=== PATIENT | female | born 1975 | race Caucasian/White ===

== ENCOUNTER 2016-12-12 15:21 | Emergency (ER) | payer OTHER ==
[~2016-12-12] VITALS: Ht 175.3 cm; Wt 114.5 kg
[~2016-12-12 15:21] MED LIST: GLUCOPHAGE500 MG PO; JANUMET 50/11 TABLET PO
[2016-12-12] MEDS ORDERED: MUCINEX D ER T1 EACH PO (17:28)
[2016-12-12] MEDS ORDERED: FLONASE16 G1 BOTH NARES (17:28)
[2016-12-12 18:05] LABS: POINT-OF-CARE METER ID UU13113800
[2016-12-12 18:07] VITALS: BP 127/101
== END 2016-12-12 18:08 | disposition home or self-care (01) ==
LOC: EME 15:21
PROVIDERS: Physician Assistant
DX: J01.90 Acute sinusitis, unspecified (principal); J30.9 Allergic rhinitis, unspecified; E11.65 Type 2 diabetes mellitus with hyperglycemia; I10 Essential (primary) hypertension
CPT/HCPCS: 82948; 99281; 99283; J7512

== ENCOUNTER 2017-03-31 20:21 | Emergency (ER) | payer OTHER ==
[~2017-03-31] VITALS: Ht 172.7 cm; Wt 113.9 kg
[~2017-03-31 20:21] MED LIST changes: +FLONASE16 G1 BOTH NARES; +MUCINEX D ER T1 EACH PO
[2017-03-31 21:18] LABS: HEMATOCRIT 43.7 % (36.0-46.0); MCH 29.7 PG (29.0-34.0); MCHC 33.9 G/DL (30.0-36.0); MCV 87.8 FL (83-99); MEAN PLAT.VOLUME 12.7 uM^3 (9.5-12.4); PLATELET COUNT 129 K/uL (156-360); RBC DIS.WIDTH-CV 12.7 % (11.8-14.6); RED BLOOD COUNT 4.98 M/uL (3.80-5.20); WHITE BLOOD COUNT 9.4 K/uL (4.1-10.2)
[2017-03-31 21:28] LABS: CHLORIDE 101 mEq/L (99-109); POTASSIUM 4.2 mEq/L (3.7-5.4); SODIUM 133 mEq/L (136-147)
[2017-03-31 21:31] LABS: ANION GAP 13 MEQ/L (2-14)
[2017-03-31 21:34] LABS: GFR ESTIMATE (CALCULATED) 35 mL/min/; UREA NITROGEN (BUN) 26 mg/dL (9-23)
[2017-03-31 21:41] LABS: TROP-I INTERPRETATION NEGATIVE; TROPONIN-I < 0.01 ng/mL (0.0-0.30)
[2017-03-31 21:50] LABS: GLUCOSE 479 mg/dL (70-99)
[2017-03-31 21:53] LABS: CREATINE KINASE 180 IU/L (1-294)
[2017-03-31 21:59] LABS: QUANTITATIVE HCG < 4.0 MIU/ML
[2017-03-31 23:33] LABS: POINT-OF-CARE METER ID UU13113800; POINT-OF-CARE USER ID PUTMLD10
[2017-04-01 00:06] LABS: CHLORIDE 101 mEq/L (99-109); POTASSIUM 4.2 mEq/L (3.7-5.4); SODIUM 135 mEq/L (136-147)
[2017-04-01 00:07] LABS: GLUCOSE 315 mg/dL (70-99)
[2017-04-01 00:09] LABS: ANION GAP 13 MEQ/L (2-14)
[2017-04-01 00:11] LABS: GFR ESTIMATE (CALCULATED) 44 mL/min/
[2017-04-01 00:12] LABS: UREA NITROGEN (BUN) 24 mg/dL (9-23)
[2017-04-01 00:18] LABS: ADD MIUA? YES; BILIRUBIN NEGATIVE; BLOOD MODERATE; COLOR AMBER ((YELLOW)); GLUCOSE (STRIP) >=500; KETONES NEGATIVE; LEUKOCYTES TRACE; NITRITE NEGATIVE; PROTEIN (STRIP) NEGATIVE; SPECIFIC GRAVITY 1.023 (1.000-1.030); UROBILINOGEN 0.2 MG/DL (0.2-1.0)
[2017-04-01 00:18] LABS: TROP-I INTERPRETATION NEGATIVE; TROPONIN-I < 0.01 ng/mL (0.0-0.30)
[2017-04-01 00:24] LABS: BACTERIA NONE SEEN /HPF; EPITHELIAL CELLS RARE /HPF; HYALINE CASTS 0-5 /LPF; MUCUS NONE SEEN /LPF; RED BLOOD CELLS 0-5 /HPF (0-5); WHITE BLOOD CELLS 0-5 /HPF (0-5)
[2017-04-01 00:42] VITALS: BP 117/72
[2017-04-02 10:16] LABS: LYME DISEASE SEROLOGY SCREEN NEGATIVE (NEGATIVE)
== END 2017-04-01 00:43 | disposition left against medical advice (07) ==
LOC: EME 20:21
PROVIDERS: Physician Assistant
DX: E11.65 Type 2 diabetes mellitus with hyperglycemia (principal); N28.9 Disorder of kidney and ureter, unspecified; R07.89 Other chest pain; R55 Syncope and collapse; R00.2 Palpitations; R06.02 Shortness of breath; I10 Essential (primary) hypertension; Z82.49 Family history of ischemic heart disease and other diseases of the circulatory system; Z79.84 Long term (current) use of oral hypoglycemic drugs
CPT/HCPCS: 71020; 80048; 80048 91; 81003; 82550; 82948; 84484; 84702; 85027; 85379; 86618; 93005; 99281; 99285; J7030

== ENCOUNTER 2017-04-08 22:58 | Emergency (ER) | payer OTHER ==
[~2017-04-08] VITALS: Ht 172.7 cm; Wt 114.2 kg
[2017-04-09 00:04] LABS: HEMATOCRIT 41.6 % (36.0-46.0); MCH 30.2 PG (29.0-34.0); MCHC 33.9 G/DL (30.0-36.0); MCV 89.1 FL (83-99); MEAN PLAT.VOLUME 13.8 uM^3 (9.5-12.4); PLATELET COUNT 112 K/uL (156-360); RBC DIS.WIDTH-CV 12.6 % (11.8-14.6); RBC DIS.WIDTH-SD 41.3 % (39-53); RED BLOOD COUNT 4.67 M/uL (3.80-5.20); WHITE BLOOD COUNT 6.6 K/uL (4.1-10.2)
[2017-04-09 00:18] LABS: CHLORIDE 102 mEq/L (99-109); SODIUM 136 mEq/L (136-147)
[2017-04-09 00:21] LABS: ANION GAP 11 MEQ/L (2-14)
[2017-04-09 00:23] LABS: GFR ESTIMATE (CALCULATED) 44 mL/min/
[2017-04-09 00:24] LABS: UREA NITROGEN (BUN) 15 mg/dL (9-23)
[2017-04-09 00:27] LABS: GLUCOSE 418 mg/dL (70-99)
[2017-04-09 00:33] LABS: TROP-I INTERPRETATION NEGATIVE; TROPONIN-I 0.01 ng/mL (0.0-0.30)
[2017-04-09 00:49] LABS: PROTHROMBIN TIME 10.9 SEC (10.2-12.9)
[2017-04-09 00:50] LABS: TOTAL BILIRUBIN 0.4 mg/dL (0.0-1.0)
[2017-04-09 00:51] LABS: ALKALINE PHOSPHATASE 59 IU/L (3-129); D-DIMER ELISA < 150.00 ng/mLDDU (<230)
[2017-04-09 00:52] LABS: PTT 26.9 SEC (25-37)
[2017-04-09 00:54] LABS: DIRECT BILIRUBIN 0.1 mg/dL (0.0-0.3)
[2017-04-09 00:55] LABS: LIPASE 60 U/L (1.0-51.0)
[2017-04-09 02:16] LABS: POINT-OF-CARE METER ID UU13113747
[2017-04-09 02:38] LABS: ADD MIUA? NO; BILIRUBIN NEGATIVE; BLOOD NEGATIVE; COLOR STRAW ((YELLOW)); GLUCOSE (STRIP) >=500; KETONES NEGATIVE; LEUKOCYTES NEGATIVE; NITRITE NEGATIVE; PROTEIN (STRIP) NEGATIVE; SPECIFIC GRAVITY 1.031 (1.000-1.030); UCUL ADDED? NO; UROBILINOGEN 0.2 MG/DL (0.2-1.0)
[2017-04-09 03:09] LABS: TROP-I INTERPRETATION NEGATIVE; TROPONIN-I < 0.01 ng/mL (0.0-0.30)
[2017-04-09 03:28] VITALS: BP 139/94
== END 2017-04-09 03:29 | disposition home or self-care (01) ==
LOC: EME 22:58
PROVIDERS: Emergency Medicine
DX: R07.89 Other chest pain (principal); E11.65 Type 2 diabetes mellitus with hyperglycemia; I10 Essential (primary) hypertension; M06.09 Rheumatoid arthritis without rheumatoid factor, multiple sites; M79.602 Pain in left arm; Z79.84 Long term (current) use of oral hypoglycemic drugs; Z82.49 Family history of ischemic heart disease and other diseases of the circulatory system
CPT/HCPCS: 71020; 80048; 80076; 81003; 82948; 83690; 84484; 85027; 85379; 85610; 85730; 93005; 99281; 99285; J7030

== ENCOUNTER 2017-09-24 01:05 | Emergency (ER) | payer OTHER ==
[~2017-09-24] VITALS: Ht 172.7 cm; Wt 115.9 kg
[2017-09-24] MEDS ORDERED: MOTRIN800 MG PO (02:52)
[2017-09-24 03:47] VITALS: BP 164/79
[2017-10-04] MEDS ORDERED: JANUMET 50/11 TABLET PO (09:01)
[2017-10-04] MEDS ORDERED: FLEXERIL10 MG PO (09:01)
[2017-10-04] MEDS ORDERED: LABETALOL HCL100 MG PO (09:01)
[2017-10-04] MEDS ORDERED: LEVEMIR FL100 UNIT/1 SC (09:02)
[2017-10-04] MEDS ORDERED: MOBIC15 MG PO (09:02)
[2017-10-04] MEDS ORDERED: LISINOPRIL20 MG PO (09:02)
[2017-10-04] MEDS ORDERED: NOVOLOG PE100 UNITS/ SC (09:03)
[2017-10-04] MEDS ORDERED: ALDACTONE25 MG PO (09:03)
[2017-10-04] MEDS ORDERED: FIORICET 50-301 EAC1 PO (09:04)
== END 2017-09-24 03:48 | disposition home or self-care (01) ==
LOC: EME 01:05
DX: S50.12XA Contusion of left forearm, initial encounter (principal); W10.9XXA Fall (on) (from) unspecified stairs and steps, initial encounter; E11.9 Type 2 diabetes mellitus without complications; I10 Essential (primary) hypertension; Z79.84 Long term (current) use of oral hypoglycemic drugs
CPT/HCPCS: 73090; 99281; 99284; J1885

== ENCOUNTER 2017-10-05 10:36 | Day surgery (SDC) | payer OTHER ==
[~2017-10-05] VITALS: Ht 172.7 cm; Wt 111.3 kg
[~2017-10-05 10:36] MED LIST changes: +ALDACTONE25 MG PO; +FIORICET 50-301 EAC1 PO; +FLEXERIL10 MG PO; +LABETALOL HCL100 MG PO; +LEVEMIR FL100 UNIT/1 SC; +LISINOPRIL20 MG PO; +MOBIC15 MG PO; +MOTRIN800 MG PO; +NOVOLOG PE100 UNITS/ SC
[2017-10-05 11:16] VITALS: BP 137/74
[2017-10-05] MEDS ORDERED: ENDOCET 5-3251 EACH PO (13:15)
[2017-10-05 13:57] VITALS: BP 139/81
[2017-10-05 14:50] VITALS: BP 122/77
[2017-10-05 16:25] VITALS: BP 144/72
== END 2017-10-05 16:25 | disposition home or self-care (01) ==
LOC: SDC 10:36
PROVIDERS: Obstetrics & Gynecology Obstetrics
PROC: 0UBC7ZX Excision of Cervix, Via Natural or Artificial Opening, Diagnostic (ICD-10-PCS; principal; 2017-10-05)
DX: N87.0 Mild cervical dysplasia (principal); E11.9 Type 2 diabetes mellitus without complications; E78.5 Hyperlipidemia, unspecified; I10 Essential (primary) hypertension; E66.01 Morbid (severe) obesity due to excess calories; Z68.36 Body mass index [BMI] 36.0-36.9, adult; D69.6 Thrombocytopenia, unspecified; Z79.4 Long term (current) use of insulin
CPT/HCPCS: 82948; 88305; 88307; 88342 TC; J1100; J1815; J1885; J2405; J3010

== ENCOUNTER 2017-10-07 18:39 | Emergency (ER) | payer OTHER ==
[~2017-10-07] VITALS: Ht 172.7 cm; Wt 114.4 kg
[~2017-10-07 18:39] MED LIST changes: +ENDOCET 5-3251 EACH PO
[2017-10-07 20:05] LABS: HEMATOCRIT 40.1 % (36.0-46.0); HEMOGLOBIN 13.7 G/DL (11.9-15.5); MCH 30.2 PG (29.0-34.0); MCHC 34.2 G/DL (30.0-36.0); MCV 88.5 FL (83-99); PLATELET COUNT 133 K/uL (156-360); RBC DIS.WIDTH-CV 13.4 % (11.8-14.6); RBC DIS.WIDTH-SD 43.6 % (39-53); RED BLOOD COUNT 4.53 M/uL (3.80-5.20); WHITE BLOOD COUNT 12.3 K/uL (4.1-10.2)
[2017-10-07 20:25] LABS: ALBUMIN 3.9 g/dL (3.2-4.8)
[2017-10-07 20:26] LABS: CHLORIDE 99 mEq/L (99-109); POTASSIUM 4.7 mEq/L (3.7-5.4); SODIUM 134 mEq/L (136-147)
[2017-10-07 20:30] LABS: TOTAL BILIRUBIN 0.9 mg/dL (0.0-1.0)
[2017-10-07 20:31] LABS: ALKALINE PHOSPHATASE 65 IU/L (3-129)
[2017-10-07 20:32] LABS: CREATININE 1.3 mg/dL (0.6-1.3); GFR ESTIMATE (CALCULATED) 48 mL/min/
[2017-10-07 20:33] LABS: AST (GOT) 13 IU/L (2-34); GLUCOSE 402 mg/dL (70-99); UREA NITROGEN (BUN) 19 mg/dL (9-23)
[2017-10-07 20:35] LABS: ALT (GPT) 19 IU/L (3-49)
[2017-10-07 20:40] LABS: QUANTITATIVE HCG < 4.0 MIU/ML
[2017-10-07 22:06] LABS: APPEARANCE CLOUDY ((CLEAR)); BILIRUBIN NEGATIVE; BLOOD LARGE; COLOR YELLOW ((YELLOW)); GLUCOSE (STRIP) >=500; KETONES NEGATIVE; LEUKOCYTES LARGE; NITRITE NEGATIVE; PROTEIN (STRIP) 30; SPECIFIC GRAVITY 1.029 (1.000-1.030); UROBILINOGEN 0.2 MG/DL (0.2-1.0)
[2017-10-07 22:16] LABS: SOURCE SWAB
[2017-10-07 22:29] LABS: RED BLOOD CELLS 15-20 /HPF (0-5); WHITE BLOOD CELLS TNTC /HPF (0-5)
[2017-10-07 22:30] LABS: BACTERIA 2+ /HPF; EPITHELIAL CELLS 2+ /HPF; MUCUS NONE SEEN /LPF; UCUL ADDED? YES
[2017-10-07] MEDS ORDERED: KEFLEX500 MG PO (22:33)
[2017-10-07] MEDS ORDERED: ULTRAM50 MG PO (22:39)
[2017-10-07 22:57] VITALS: BP 142/98
== END 2017-10-07 22:59 | disposition home or self-care (01) ==
LOC: EME 18:39
PROVIDERS: Physician Assistant
DX: R10.2 Pelvic and perineal pain (principal); E11.9 Type 2 diabetes mellitus without complications; Z79.4 Long term (current) use of insulin; Z98.890 Other specified postprocedural states
CPT/HCPCS: 80053; 81003; 84702; 85027; 87086; 87210; 87491; 87591; 99281; 99284

== ENCOUNTER 2017-10-22 13:16 | Emergency (ER) | payer OTHER ==
[~2017-10-22] VITALS: Ht 172.7 cm; Wt 112.4 kg
[~2017-10-22 13:16] MED LIST changes: +KEFLEX500 MG PO; +ULTRAM50 MG PO
[2017-10-22 13:27] VITALS: BP 139/79
[2017-10-22] MEDS ORDERED: CLEOCIN300 MG PO (13:39)
[2017-10-22] MEDS ORDERED: ULTRAM50 MG PO (13:39)
== END 2017-10-22 14:00 | disposition home or self-care (01) ==
LOC: EME 13:16
DX: L73.9 Follicular disorder, unspecified (principal); I89.0 Lymphedema, not elsewhere classified; L02.411 Cutaneous abscess of right axilla
CPT/HCPCS: 99281; 99284

== ENCOUNTER 2018-01-22 18:03 | Emergency (ER) | payer OTHER ==
[~2018-01-22] VITALS: Ht 175.3 cm; Wt 112.4 kg
[~2018-01-22 18:03] MED LIST changes: +CLEOCIN300 MG PO
[2018-01-22] MEDS ORDERED: FLEXERIL10 MG PO (20:59)
[2018-01-22] MEDS ORDERED: NAPROSYN500 MG PO (20:59)
[2018-01-22] MEDS ORDERED: MEDROL DOSEPAK4 MG PO (20:59)
[2018-01-22 21:23] VITALS: BP 130/78
== END 2018-01-22 20:59 | disposition home or self-care (01) ==
LOC: EME 18:03
DX: M54.5 Low back pain (principal)
CPT/HCPCS: 99281; 99283

== ENCOUNTER 2018-02-03 23:47 | Emergency (ER) | payer OTHER ==
[~2018-02-03] VITALS: Ht 172.7 cm; Wt 110.4 kg
[~2018-02-03 23:47] MED LIST changes: +MEDROL DOSEPAK4 MG PO; +NAPROSYN500 MG PO
[2018-02-04] MEDS ORDERED: ULTRAM50 MG PO (01:55)
[2018-02-04] MEDS ORDERED: MOTRIN800 MG PO (01:55)
[2018-02-04 02:04] VITALS: BP 146/96
== END 2018-02-04 02:15 | disposition home or self-care (01) ==
LOC: EME 23:47
DX: S20.212A Contusion of left front wall of thorax, initial encounter (principal); W01.0XXA Fall on same level from slipping, tripping and stumbling without subsequent striking against object, initial encounter; Y92.000 Kitchen of unspecified non-institutional (private) residence as the place of occurrence of the external cause; E11.9 Type 2 diabetes mellitus without complications; Z79.4 Long term (current) use of insulin
CPT/HCPCS: 71101; 99281; 99283

== ENCOUNTER 2018-03-02 03:57 | Emergency (ER) | payer OTHER ==
[~2018-03-02] VITALS: Ht 172.7 cm; Wt 109.2 kg
[2018-03-02 04:42] LABS: HEMATOCRIT 42.2 % (36.0-46.0); HEMOGLOBIN 14.3 G/DL (11.9-15.5); MCH 29.7 PG (29.0-34.0); MCHC 33.9 G/DL (30.0-36.0); MCV 87.6 FL (83-99); PLATELET COUNT 104 K/uL (156-360); RBC DIS.WIDTH-CV 13.2 % (11.8-14.6); RBC DIS.WIDTH-SD 42.8 % (39-53); RED BLOOD COUNT 4.82 M/uL (3.80-5.20)
[2018-03-02 04:52] LABS: CHLORIDE 105 mEq/L (99-109); POTASSIUM 4.3 mEq/L (3.7-5.4); SODIUM 140 mEq/L (136-147)
[2018-03-02 04:53] LABS: GLUCOSE 312 mg/dL (70-99)
[2018-03-02 04:57] LABS: CREATININE 1.4 mg/dL (0.6-1.3); GFR ESTIMATE (CALCULATED) 44 mL/min/
[2018-03-02 04:58] LABS: UREA NITROGEN (BUN) 16 mg/dL (9-23)
[2018-03-02 05:07] LABS: QUANTITATIVE HCG < 4.0 MIU/ML
[2018-03-02 05:41] VITALS: BP 166/112
[2018-03-02 05:46] LABS: APPEARANCE CLEAR ((CLEAR)); BILIRUBIN NEGATIVE; BLOOD NEGATIVE; COLOR YELLOW ((YELLOW)); GLUCOSE (STRIP) >=500; KETONES NEGATIVE; LEUKOCYTES NEGATIVE; NITRITE NEGATIVE; PROTEIN (STRIP) NEGATIVE; UCUL ADDED? NO; UROBILINOGEN 0.2 MG/DL (0.2-1.0)
== END 2018-03-02 05:41 | disposition home or self-care (01) ==
LOC: EME 03:57
DX: B34.9 Viral infection, unspecified (principal); R11.2 Nausea with vomiting, unspecified; R51 Headache; E11.9 Type 2 diabetes mellitus without complications; Z79.4 Long term (current) use of insulin
CPT/HCPCS: 80048; 81003; 84702; 85027; 99281; 99284